=== PATIENT | male | born 1990 | race African-American/Black ===

== ENCOUNTER 2021-04-29 22:49 | Emergency (ER) | payer SELFPAY ==
[2021-04-29 22:55] VITALS: BP 102/64; PULSE 42; RESP 13; TEMP 35.5; O2SAT 95
--- NOTE | 2021-04-29 22:55 | W.ED.AMS ---
HPI - Altered Mental Status General: Chief Complaint: Altered Mental Status Stated Complaint: etoh Time Seen by Provider: 04/29/21 22:55 Limitations: altered mental status History of Present Illness: Mr. Giraldo is a 30-year-old gentleman with unclear history who presents the emergency department due to altered mental status. Apparently EMS was called as the patient had altered mental status and was found near a number of hard alcohol shooters. EMS found the patient significantly somnolent though he did respond to sternal rub. Supplemental oxygen is in place. History is otherwise significant limited by patient's current mental status. Review of Systems General: Reports: ROS unobtainable due to mental status [facility] ED PFSH: Medical History Alcoholic intoxication Unknown family medical history Social History (Updated 05/03/21 @ 19:51 by Navid Garcia MD) Alcohol intake: current Physical Exam Const: EXAM LIMITATIONS: altered mental status GENERAL APPEARANCE: odor of alcohol detected HENMT: COMMON NORMALS: normocephalic and atraumatic HEAD & SCALP: normocephalic and atraumatic THROAT: posterior oropharynx normal Eye: COMMON NORMALS: conjunctivae normal CONJUNCTIVA: Yes conjunctivae normal SCLERA: sclerae normal Neck/C-Spine: COMMON NORMALS: supple GENERAL: Yes trachea midline Resp: COMMON NORMALS: normal respiratory effort and clear to auscultation bilaterally EFFORT & INSPECTION: Yes able to speak in complete sentences AUSCULTATION: clear to auscultation bilaterally Cardio: COMMON NORMALS: regular rhythm RATE: bradycardic RHYTHM: regular rhythm GI: COMMON NORMALS: Soft to palpation PALPATION: Yes Soft to palpation and No Tenderness to palpation present (GI) PERCUSSION: normal to percussion Extremity: GENERAL: Yes normal exam except as noted and No edema Neuro: COMMON NORMALS: moves all extremities SENSORIUM/ORIENTATION: Yes somnolent Course ED course: - Patient was seen and evaluated by me at bedside - Patient placed on cardiac monitors, IV access obtained - Initial evaluation notable for exam as above. Patient is somnolent however does appear to be protecting his airway. Given overall appearance and fitness bradycardia likely not clinically significant. - Labs notable for no leukocytosis or abnormality in hemoglobin. Mild decrease in pH on ABG however I believe that the patient will improve and does not require acute airway intervention. Hypokalemia noted on metabolic panel. Toxic ingestions as tested positive for marijuana screen and elevated ethyl alcohol level. - Patient not cooperative with ordered imaging - Upon serial reexamination after treatment the patient was improved - Based on patient history, evaluation, and testing as interpreted the most likely cause of the patient's condition is acute alcohol intoxication - He was serially reserved until clinically sober. He ambulated without difficulty, speech showed no evidence intoxication, mental status appeared normal, patient tolerated p.o. intake. - The results of ED evaluation were discussed with the patient including prescriptions and/or symptomatic cares (if applicable) including appropriate and responsible use, followup plan, and return precautions. The patient verbalized understanding and felt safe for discharge. - Patient discharged in satisfactory condition. Note: Click bubbles or prepopulated leon in note writing are used for assistance with data collection and billing and are inherently more limited than narrative and other text portions of this note. Please use narrative for additional clinical history and defer to narrative/free test for any case of contradictory information. If information appears in only free text or click bubble it should be considered present or absent as reported. Please contact note leader writer for clarifications of clinical information or contradictory information. MDM is a brief summary, contradictory or erroneous seeming information should be clarified and full note should be reviewed. Vital Signs: Vital signs: Vital Signs Temperature 96 F L 04/29/21 22:55 Pulse Rate 73 04/30/21 00:23 Respiratory Rate 13 04/29/21 22:55 Blood Pressure 117/83 04/30/21 06:06 Pulse Oximetry 99 04/30/21 00:23 MDM - Altered Mental Status Medical Decision Making 31-year-old gentleman presenting with altered mental status found on scene with alcohol. Patient felt a little elevated. CT imaging was ordered however patient declined CT imaging. Patient was observed serially until clinically sober at which point he tolerated p.o. intake, daily, did not show obvious evidence of intoxication at which point he was discharged. Medical Records I reviewed the patient's medical records. Lab Data I reviewed the patient's lab results. : 04/29/21 22:32 04/29/21 22:32 Laboratory Results WBC 5.3 10^3/uL (4.0-10.0) 04/29/21 22:32 RBC 5.22 10^6/uL (4.1-5.3) 04/29/21: Hgb 12.4 g/dL (11.7-16.6) 04/29/21: Hct 40.8 % (42.0-52.0) L 04/29/21: MCV 78.2 fl (80-94) L 04/29/21: MCH 23.8 pg (28.0-34.0) L 04/29/21: MCHC 30.4 g/dL (30.0-36.0) 04/29/21: RDW 13.9 % (12.1-15.1) 04/29/21: Plt Count 190 10^3/cmm (130-400) 04/29/21 MPV 12.2 fL (7.4-10.4) H 04/29/21: Neut % (Auto) 48.9 % 04/29/21: Lymph % (Auto) 42.1 % 04/29/21: [place] % (Auto) 8.0 % 04/29/21: Eos % (Auto) 0.4 % 04/29/21: Baso % (Auto) 0.4 % 04/29/21: Neut # (Auto) 2.58 10^3/uL (1.8-7.7) 04/29/21 Lymph # (Auto) 2.2 10^3/uL (0.8-4.8) 04/29/21: [place] # (Auto) 0.4 10^3/uL (0.2-0.9) 04/29/21: Eos # (Auto) 0.0 10^3/uL (0.0-0.8) 04/29/21: Baso # (Auto) 0.0 10^3/uL (0.0-0.1) 04/29/21 Nucleated RBC % (auto) 0 % 04/29/21 Nucleated RBCs # 0.0 /100WBC 04/29/21: Specimen Type Arterial 04/29/21 23:11 Sample Site Radial, right 04/29/21 23:11 ABG pH 7.29 (7.35-7.45) L 04/29/21 23:11 ABG pCO2 52.8 mmHg (35-45) H 04/29/21 23:11 ABG pO2 239.0 mmHg (80.0-100.0) H 04/29/21 23:11 ABG HCO3 25.2 mmol/L (22-26) 04/29/21 23:11 ABG Base Excess -1.9 mmol/L (-2.0-2.0) 04/29/21 23:11 Roger Test Pos 04/29/21 23:11 Hematocrit 35.4 % (42-52) L 04/29/21 23:11 O2 Delivery Device Nc 04/29/21 23:11 O2 Liters/Min 2.0 % 04/29/21 23:11 Machinery Cleaner ID Dany 04/29/21 23:11 Sodium 142 mmol/L (136-145) 04/29/21 22:32 Potassium 2.9 mmol/L (3.5-5.1) L 04/29/21 22:32 Chloride 104 mmol/L (98-107) 04/29/21 22:32 Carbon Dioxide 22 mmol/L (22-29) 04/29/21 22:32 Anion Gap 18.9 (5-19) 04/29/21 22:32 BUN 8 mg/dL (6-20) 04/29/21 22:32 Creatinine 1.1 mg/dL (0.7-1.2) 04/29/21 22:32 GFR Calculation 96.4 mL/min (90-130) 04/29/21 22:32 Glucose 115 mg/dL (65-115) 04/29/21 22:32 POC Glucose 116 mg/dL (70-110) H 04/29/21 23:03 Calculated Osmolality 293 mOsm/kg (285-295) 04/29/21 22:32 Calcium 9.6 mg/dL (8.5-10.5) 04/29/21 22:32 Total Bilirubin 0.6 mg/dL (0.15-1.2) 04/29/21 22:32 AST 23 U/L (0-40) 04/29/21 22:32 ALT 20 U/L (0-41) 04/29/21 22:32 Alkaline Phosphatase 81 IU/L (40-130) 04/29/21 22:32 Total Protein 7.3 g/dL (6.6-8.7) 04/29/21 22:32 Albumin 4.7 g/dL (3.5-5.2) 04/29/21 22:32 Globulin 2.6 g/dL (1.3-4.6) 04/29/21 22:32 TSH 2.32 uIU/mL (0.27-4.20) 04/29/21 22:32 Salicylates < 0.3 mg/dL (3-10) L 04/29/21 22:32 Urine Opiates Screen Negative ng/mL (Negative) 04/30/21 02:20 Acetaminophen < 5.0 ug/mL (10-30) L 04/29/21 22:32 Ur Barbiturates Screen Negative ng/mL (Negative) 04/30/21 02:20 Ur Phencyclidine Scrn Negative ng/mL (Negative) 04/30/21 02:20 Ur Amphetamines Screen Negative ng/mL (Negative) 04/30/21 02:20 U Benzodiazepines Scrn Negative ng/mL (Negative) 04/30/21 02:20 Urine Cocaine Screen Negative ng/mL (Negative) 04/30/21 02:20 U Marijuana (THC) Screen Positive ng/mL (Negative) H 04/30/21 02:20 Ethyl Alcohol 280 mg/dL (0-10) H 04/29/21 22:32 EKG Data EKG 1: I personally reviewed and interpreted this EKG as follows: EKG interpretation date: 04/29/21 EKG interpretation time: 22:25 Interpretation: Twelve-lead EKG shows a regular rhythm at a rate of 52. [place] interval 178, QRS duration 134, QTc 458. Normal axis. Interpretation: Sinus bradycardia. I do not see evidence of acute DC as noted on electronic interpretation. Critical Care Time Critical Care Time: Critical Care Time: Yes Total Critical Care Time: 35 Attestation: Due to a high probability of clinically significant, possibly life threatening deterioration, the patient required my highest level of attention and preparedness to intervene emergently and I personally spent this critical care time directly and personally managing the patient. This critical care time included obtaining a history; examining the patient; pulse oximetry; ordering and review of laboratory and imaging studies; arranging urgent treatment with development of a management plan; evaluation of patient's response to treatment; frequent reassessment; and, discussions with other providers as applicable. It was exclusive of separately billable procedures. 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 You were seen and evaluated for altered mental status. I believe that this is likely secondary to abuse of alcohol. Please do not abuse alcohol in the future. Failure to responsible use alcohol or avoid alcohol may lead to or worse. Please follow-up with your primary care provider. Please establish with a primary care provider if you do not currently have one. Please return to the emergency department for anything that you are concerned about and feel needs emergency department evaluation. Coding Level of Care Code ED Screen Door Maker for Lesli Banks
--- NOTE | 2021-04-29 22:59 | ECG_ITS ---
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 Measurements Intervals [place] Rate: 52 P: 86 VT: 178 QRS: -25 QRSD: 134 T: 90 QT: 479 QTc: 446 Interpretive Statements SINUS BRADYCARDIA INTRAVENTRICULAR CONDUCTION DELAY [130+ ms QRS DURATION] ANTERIOR MYOCARDIAL INFARCTION , PROBABLY RECENT [40+ ms Q WAVE AND/OR ST/T ABNORMALITY IN V3/V4] ACUTE MD No previous ECG available for comparison Electronically Signed On 04-30-2021 21:42:23 CDT by Sommer Mesa M.D. [id number]
[2021-04-29 23:22] LABS: Basophils % 0.4 %; Eosinophils % 0.4 %; Hematocrit 40.8 % (42.0-52.0); Hemoglobin 12.4 g/dL (11.7-16.6); Lymphocytes # 2.2 10^3/uL (0.8-4.8); Lymphocytes % 42.1 %; Mean Corpuscular HGB Conc 30.4 g/dL (30.0-36.0); Mean Corpuscular Hemoglobin 23.8 pg (28.0-34.0); Mean Corpuscular Volume 78.2 fl (80-94); Mean Platelet Volume 12.2 fL (7.4-10.4); Monocytes # 0.4 10^3/uL (0.2-0.9); Neutrophils # 2.58 10^3/uL (1.8-7.7); Neutrophils % 48.9 %; Nucleated Red Blood Cells % 0 %; Platelet Count 190 10^3/cmm (130-400); Red Blood Count 5.22 10^6/uL (4.1-5.3); Red Cell Distribution Width 13.9 % (12.1-15.1); White Blood Count 5.3 10^3/uL (4.0-10.0)
[2021-04-29 23:23] LABS: ABG PCO2 52.8 mmHg (35-45); ABG PH Result 7.29 (7.35-7.45); Arterial Blood Gas Hematocrit 35.4 % (42-52); Base Excess ABG -1.9 mmol/L (-2.0-2.0); Blood Gas Allen Test Pos; Blood Gas Operator Identificat JB; Blood Gas Sample Site Radial, right; Blood Gas Sample Type Arterial; HCO3 ABG 25.2 mmol/L (22-26); Oxygen Device NC
[2021-04-29 23:38] VITALS: BP 150/59; PULSE 66; O2SAT 98
[2021-04-30 00:01] LABS: Alanine Aminotransferase 20 U/L (0-41); Albumin Level 4.7 g/dL (3.5-5.2); Alcohol Level 280 mg/dL (0-10); Alkaline Phosphatase 81 IU/L (40-130); Anion Gap 18.9 (5-19); Aspartate Amino Transferase 23 U/L (0-40); Blood Urea Nitrogen 8 mg/dL (6-20); Calcium 9.6 mg/dL (8.5-10.5); Carbon Dioxide 22 mmol/L (22-29); Chloride 104 mmol/L (98-107); Globulin 2.6 g/dL (1.3-4.6); Glomerular Filtration Rate 96.4 mL/min (90-130); Glucose 115 mg/dL (65-115); Osmolality Calculated 293 mOsm/kg (285-295); Sodium 142 mmol/L (136-145); Thyroid Stimulating Hormone 2.32 uIU/mL (0.27-4.20); Total Bilirubin 0.6 mg/dL (0.15-1.2); Total Protein 7.3 g/dL (6.6-8.7)
[2021-04-30 00:04] LABS: Acetaminophen < 5.0 ug/mL (10-30); Salicylate < 0.3 mg/dL (3-10)
[2021-04-30 00:05] LABS: Potassium 2.9 mmol/L (3.5-5.1)
[2021-04-30 00:23] VITALS: BP 111/71; PULSE 73; O2SAT 99
[2021-04-30] MEDS: lidocaine 1% 5 ML in potassium chloride premix 100 ML 25 ML IV (00:52)
[2021-04-30] MEDS: sodium chloride 0.9% 1,000 ML 999 ML IV (00:52)
[2021-04-30 01:05] LABS: Glucose Point of Care 116 mg/dL (70-110)
[2021-04-30 02:37] LABS: Amphetamines Screen Urine Negative (Negative); Barbiturates Screen Urine Negative (Negative); Benzodiazepines Screen Urine Negative (Negative); Cocaine Screen Urine Negative (Negative); Opiate Screen Urine Negative (Negative); PCP Screen Urine Negative (Negative); THC Screen Urine Positive (Negative)
[2021-04-30 06:06] VITALS: BP 117/83
--- NOTE | 2021-04-30 06:13 | PC.NURSE ---
critical care time pt required a nurse to be in the room due to pt lack of judgement- ex- trying to get out of bed or trying to remove iv and monitor cords and requirement for nurse to continually be in ct with pt to attempt scans.
[2021-04-30] MEDS: potassium chloride ER 20 mEq Tablet 40 MEQ PO (06:26)
== END 2021-04-30 06:00 | disposition home or self-care (01) ==
PROVIDERS: Emergency Provider Emergency Medicine
DX: R41.82 Altered mental status, unspecified (principal); F10.129 Alcohol abuse with intoxication, unspecified; Y90.8 Blood alcohol level of 240 mg/100 ml or more; E87.6 Hypokalemia; R00.1 Bradycardia, unspecified
CPT/HCPCS: 36416; 80053; 80306; 80307; 82803; 82962; 84443; 85025; 93005; 96365; 96366; 99284; J3480; J7030

== ENCOUNTER 2022-09-24 02:22 | Emergency (ER) | payer SELFPAY ==
[2022-09-24 02:25] VITALS: PULSE 94; RESP 12; O2SAT 94; BMI 21.7
--- NOTE | 2022-09-24 02:28 | CTR_ITS ---
PROCEDURE INFORMATION: Exam: CT Head Without Contrast Exam date and time: 09/24/2022 2:49 AM Age: 32 years old Clinical indication: Altered mental status/memory loss; Patient HX: AMS due to alcohol intoxication TECHNIQUE: Imaging protocol: Computed tomography of the head without contrast. Radiation optimization: All CT scans at this facility use at least one of these dose optimization techniques: automated exposure control; mA and/or kV adjustment per patient size (includes targeted exams where dose is matched to clinical indication); or iterative reconstruction. REPORTING DATA: Count of CT and Cardiac NM exams in prior 12 months: This patient has received 0 known CTs and 0 known cardiac nuclear medicine studies in the 12 months prior to the current study. COMPARISON: No relevant prior studies available. RADIATION DOSE METRICS: Total DLP (mGy-cm): 2006.98 FINDINGS: Limitations: Exam sensitivity and specificity is somewhat limited secondary to technique/quantum mottle. Brain: No acute intracranial hemorrhage. Left frontal area of decreased attenuation with punctate calcification adjacent to the inner table on series 12, images 40 through 43 measuring up to approximately 1.8 cm x 0.7 cm in axial dimension. Cerebral ventricles: The ventricular system is within normal limits of variation for the patient's age. Paranasal sinuses: Visualized paranasal sinuses are grossly unremarkable. No air fluid levels. Mastoid air cells: Visualized mastoid air cells are well aerated. Bones/joints: No acute fracture. Soft tissues: Grossly unremarkable. CT/CT head wo con* [id number] IMPRESSION: 1. No acute intracranial hemorrhage. 2. Left frontal area of decreased attenuation adjacent to the inner table (series 12, image 40) measuring up to approximately 1.8 cm x 0.7 cm in axial dimension may represent and atypical hypodense meningioma versus sequelae of prior ischemic or infectious/inflammatory insult however other etiologies cannot be excluded. A contrast-enhanced MRI of the brain may be helpful for further evaluation if clinically indicated.
[2022-09-24] MEDS: sodium chloride 0.9% 1,000 ML 999 ML IV ×2 (02:30→02:40)
[2022-09-24 02:57] LABS: Basophils % 0.4 %; Eosinophils # 0.1 10^3/uL (0.0-0.8); Eosinophils % 1.9 %; Hematocrit 42.6 % (42.0-52.0); Hemoglobin 12.7 g/dL (11.7-16.6); Lymphocytes # 2.6 10^3/uL (0.8-4.8); Mean Corpuscular HGB Conc 29.8 g/dL (30.0-36.0); Mean Corpuscular Hemoglobin 24.3 pg (28.0-34.0); Mean Corpuscular Volume 81.5 fl (80-94); Mean Platelet Volume 11.1 fL (7.4-10.4); Monocytes # 0.6 10^3/uL (0.2-0.9); Monocytes % 7.9 %; Neutrophils # 3.56 10^3/uL (1.8-7.7); Neutrophils % 51.5 %; Nucleated Red Blood Cells % 0 %; Platelet Count 213 10^3/cmm (130-400); Red Blood Count 5.23 10^6/uL (4.1-5.3); Red Cell Distribution Width 14.2 % (12.1-15.1); White Blood Count 6.9 10^3/uL (4.0-10.0)
--- NOTE | 2022-09-24 03:00 | ECG_ITS ---
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 Measurements Intervals [place] Rate: 84 P: 56 IN: 164 QRS: 4 QRSD: 98 T: 72 QT: 350 QTc: 415 Interpretive Statements SINUS RHYTHM POSSIBLE LEFT ATRIAL ENLARGEMENT [-0.1mV P-WAVE IN V1/V2] POSSIBLE RIGHT VENTRICULAR CONDUCTION DELAY [RSR (QR) IN V1/V2] ST DEVIATION AND MODERATE T-WAVE ABNORMALITY, CONSIDER ANTERIOR ISCHEMIA [-0.1+ mV T-WAVE IN V3/V4] Compared to ECG 04/29/2021 22:22:56 T-wave abnormality now present Possible ischemia now present Sinus bradycardia no longer present Intraventricular conduction delay no longer present Myocardial infarct finding no longer present Electronically Signed On 09-24-2022 9:24:22 CDT by Zhou Longoria M.D. [id number]
--- NOTE | 2022-09-24 03:00 | ED_ITS ---
HPI - Alcohol General: Chief Complaint: Alcohol Stated Complaint: ETOH Time Seen by Provider: 09/24/22 02:25 Source: EMS and police Mode of arrival: EMS Limitations: altered mental status History of Present Illness: 32-year-old male who was found in a parking lot facedown in his vomit tonight. History currently is from police and ambulance as he is only responsive to painful stimuli not able to answer any questions. Please states they know patient well that he has done this before and has been extremely intoxicated he has a history of drug abuse as well. Patient is covered in vomit and vomited in the EMS as well no signs of trauma at this time Review of Systems General: Reports: ROS unobtainable due to mental status PFSH ED PFSH: Medical History Alcoholic intoxication Unknown family medical history Social History Alcohol intake: current Physical Exam Const: COMMON NORMALS: negative for patient oriented x3 OTHER: Unresponsive with vomit on his shirt HENMT: COMMON NORMALS: normocephalic and atraumatic HEAD & SCALP: normocephalic and atraumatic MOUTH: Normal oral and palatal mucosa present Eye: COMMON NORMALS: Equal, round and reactive pupils present PUPIL: Yes Equal, round and reactive pupils present Neck/C-Spine: COMMON NORMALS: supple Chest: COMMONS NORMALS: normal inspection of the chest and normal palpation of entire chest wall Resp: COMMON NORMALS: normal respiratory effort and clear to auscultation bilaterally AUSCULTATION: clear to auscultation bilaterally Cardio: COMMON NORMALS: regular rate and regular rhythm RATE: regular rate RHYTHM: regular rhythm GI: COMMON NORMALS: Normal to inspection, nondistended, normoactive bowel sounds present and Soft to palpation PALPATION: Yes Soft to palpation Extremity: COMMON NORMALS: normal to inspection Neuro: COMMON NORMALS: negative for patient oriented x3 Psych: COMMON NORMALS: negative for mental status grossly normal Skin: COMMON NORMALS: no rashes or lesions noted GENERAL SKIN EXAM: no rashes or lesions noted Course Vital Signs: Vital signs: Vital Signs Pulse Rate 73 09/24/22 05:43 Respiratory Rate 18 09/24/22 05:43 Blood Pressure 113/60 09/24/22 05:43 Pulse Oximetry 99 09/24/22 05:43 Oxygen Delivery Me thod Room Air 09/24/22 05:43 MDM - Alcohol Medical Decision Making Patient presents with alcohol intoxication he is now awake alert ambulatory he is wanting to leave he is stable he is able to ambulate without any difficulty has decision made capacity and was discharged Lab Data 09/24/22 02:46 09/24/22 02:[address] 09/24/22 02:28 IMPRESSION: 1. No acute intracranial hemorrhage. 2. Left frontal area of decreased attenuation adjacent to the inner table (series 12, image 40) measuring up to approximately 1.8 cm x 0.7 cm in axial dimension may represent and atypical hypodense meningioma versus sequelae of prior ischemic or infectious/inflammatory insult however other etiologies cannot be excluded. A contrast-enhanced MRI of the brain may be helpful for further evaluation if clinically indicated. Chest X-Ray 09/24/22 03:02 IMPRESSION: No acute findings. Laboratory Results WBC 6.9 10^3/uL (4.0-10.0) 09/24/22 02:46 RBC 5.23 10^6/uL (4.1-5.3) 09/24/22 02:46 Hgb 12.7 g/dL (11.7-16.6) 09/24/22 02:46 Hct 42.6 % (42.0-52.0) 09/24/22 02:46 MCV 81.5 fl (80-94) 09/24/22 02:46 MCH 24.3 pg (28.0-34.0) L 09/24/22 02:46 MCHC 29.8 g/dL (30.0-36.0) L 09/24/22 02:46 RDW 14.2 % (12.1-15.1) 09/24/22 02:46 Plt Count 213 10^3/cmm (130-400) 09/24/22 02:46 MPV 11.1 fL (7.4-10.4) H 09/24/22 02:46 Neut % (Auto) 51.5 % 09/24/22 02:46 Lymph % (Auto) 38.0 % 09/24/22 02:46 [place] % (Auto) 7.9 % 09/24/22 02:46 Eos % (Auto) 1.9 % 09/24/22 02:46 Baso % (Auto) 0.4 % 09/24/22 02:46 Neut # (Auto) 3.56 10^3/uL (1.8-7.7) 09/24/22 02:46 Lymph # (Auto) 2.6 10^3/uL (0.8-4.8) 09/24/22 02:46 [place] # (Auto) 0.6 10^3/uL (0.2-0.9) 09/24/22 02:46 Eos # (Auto) 0.1 10^3/uL (0.0-0.8) 09/24/22 02:46 Baso # (Auto) 0.0 10^3/uL (0.0-0.1) 09/24/22 02:46 Nucleated RBC % (auto) 0 % 09/24/22 02:46 Nucleated RBCs # 0.0 /100WBC 09/24/22 02:46 Sodium 145 mmol/L (136-145) 09/24/22 02:46 Potassium 4.1 mmol/L (3.5-5.1) 09/24/22 02:46 Chloride 108 mmol/L (98-107) H 09/24/22 02:46 Carbon Dioxide 27 mmol/L (22-29) 09/24/22 02:46 Anion Gap 14.1 (5-19) 09/24/22 02:46 BUN 9 mg/dL (6-20) 09/24/22 02:46 Creatinine 0.9 mg/dL (0.7-1.2) 09/24/22 02:46 GFR Calculation 119.9 mL/min (90-130) 09/24/22 02:46 Glucose 122 mg/dL (65-115) H 09/24/22 02:46 Calculated Osmolality 300 mOsm/kg (285-295) H 09/24/22 02:46 Calcium 9.0 mg/dL (8.5-10.5) 09/24/22 02:46 Total Bilirubin 0.3 mg/dL (0.15-1.2) 09/24/22 02:46 AST 26 U/L (0-40) 09/24/22 02:46 ALT 13 U/L (0-41) 09/24/22 02:46 Alkaline Phosphatase 85 U/L (40-130) 09/24/22 02:46 Creatine Kinase 267 U/L (39-308) 09/24/22 02:46 Total Protein 7.0 g/dL (6.6-8.7) 09/24/22 02:46 Albumin 4.3 g/dL (3.5-5.2) 09/24/22 02:46 Globulin 2.7 g/dL (1.3-4.6) 09/24/22 02:46 Ethyl Alcohol 282 mg/dL (0-10) H 09/24/22 02:46 Discharge Plan Discharge Patient Disposition: Home Clinical Impression: Alcoholic intoxication Condition: Stable Discharge Orders: Discharge ED (Routine); Ordered 09/24/22 Ordered By: Didi Page Discharge Diet: Advance as tolerated Discharge Activity: Resume usual activity Patient Instructions: Alcohol Intoxication (ED) Coding Level of Care Code ED Slackline Operator for Lesli Banks
--- NOTE | 2022-09-24 03:02 | XRR_ITS ---
PROCEDURE INFORMATION: Exam: XR Chest Exam date and time: 09/24/2022 3:10 AM Age: 32 years old Clinical indication: Other: Alcohol intoxication; Patient HX: Alcohol inxtoxication; Additional info: AMS TECHNIQUE: Imaging protocol: Radiologic exam of the chest. Views: 1 view. COMPARISON: No relevant prior studies available. FINDINGS: Lungs: Unremarkable. No consolidation. Pleural spaces: Unremarkable. No pleural effusion. No pneumothorax. Heart/Mediastinum: Unremarkable. No cardiomegaly. Bones/joints: Unremarkable. XR/XR chest 1V portable [id number] IMPRESSION: No acute findings.
[2022-09-24 03:13] VITALS: PULSE 84; RESP 18; O2SAT 93
[2022-09-24 03:19] LABS: Alanine Aminotransferase 13 U/L (0-41); Albumin Level 4.3 g/dL (3.5-5.2); Alcohol Level 282 mg/dL (0-10); Alkaline Phosphatase 85 U/L (40-130); Anion Gap 14.1 (5-19); Aspartate Amino Transferase 26 U/L (0-40); Blood Urea Nitrogen 9 mg/dL (6-20); Carbon Dioxide 27 mmol/L (22-29); Chloride 108 mmol/L (98-107); Globulin 2.7 g/dL (1.3-4.6); Glomerular Filtration Rate 119.9 mL/min (90-130); Glucose 122 mg/dL (65-115); Osmolality Calculated 300 mOsm/kg (285-295); Potassium 4.1 mmol/L (3.5-5.1); Sodium 145 mmol/L (136-145); Total Bilirubin 0.3 mg/dL (0.15-1.2)
[2022-09-24 03:42] LABS: Creatine Phosphokinase 267 U/L (39-308)
--- NOTE | 2022-09-24 03:57 | PC.NURSE ---
Pt. lying on his abdomen, refusing to roll over on his back. pt. had to be held on his back for xray. Pt. resting now in room with vitals within normal limits.
[2022-09-24 05:43] VITALS: BP 113/60; PULSE 73; RESP 18; O2SAT 99
--- NOTE | 2022-09-24 06:02 | PC.NURSE ---
Fluids were dc'd prior to finishing infusing per Dr Page
--- NOTE | 2022-09-24 06:53 | PC.NURSE ---
Patient report given to AIDEE Mensah
== END 2022-09-24 07:41 | disposition home or self-care (01) ==
PROVIDERS: Emergency Provider Emergency Medicine
DX: F10.129 Alcohol abuse with intoxication, unspecified (principal); Y90.8 Blood alcohol level of 240 mg/100 ml or more
CPT/HCPCS: 70450; 71045; 80053; 80307; 82550; 85025; 93005; 99285; J7030

== ENCOUNTER 2023-10-05 22:27 | Observation (INO) | payer OTHER, SELFPAY ==
[2023-10-05 22:33] VITALS: BP 146/95; PULSE 92; RESP 16; TEMP 36.9; O2SAT 97; BMI 22.4
--- NOTE | 2023-10-05 22:44 | XRR_ITS ---
PROCEDURE INFORMATION: Exam: XR Abdomen Exam date and time: 10/05/2023 10:54 PM Age: 33 years old Clinical indication: Abdominal pain; Other: Foreign body; Additional info: Foreign body in rectum, PT states there is a cucumber in his rectum TECHNIQUE: Imaging protocol: Radiologic exam of the abdomen. Views: Frontal supine view of the abdomen. 1 View. COMPARISON: CR XR chest 1V portable [id number] 09/24/2022 3:10 AM FINDINGS: Gastrointestinal tract: Normal. No bowel dilation. Vasculature: Pelvic phleboliths. Bones/joints: Unremarkable. XR/XR abdomen 1V* [id number] IMPRESSION: No acute findings. No radiopaque foreign body.
--- NOTE | 2023-10-05 22:46 | ED_ITS ---
HPI - Skin/Abscess/Foreign Bdy General: Chief complaint: Skin/Abscess/Foreign Body Stated complaint: object stuck in rectum Time Seen by Provider: 10/05/23 22:40 History of Present Illness: Patient presents to the ER with complaints of a cucumber in his rectum that he cannot remove. He states it has been there for several hours and does not cause any pain. Review of Systems General: Reports: 10 or more systems reviewed and unremarkable except in HPI and below PFSH ED PFSH: Medical History Unknown family medical history Alcoholic intoxication Social History Alcohol intake: current Physical Exam Const: COMMON NORMALS: no acute distress, average body habitus, patient oriented x3, no limitations, healthy appearing, alert and well nourished Neck/C-Spine: COMMON NORMALS: no JVD Chest: COMMONS NORMALS: normal inspection of the chest and normal palpation of entire chest wall Resp: COMMON NORMALS: normal respiratory effort, No retractions, No use of accessory muscles and clear to auscultation bilaterally AUSCULTATION: clear to auscultation bilaterally Cardio: COMMON NORMALS: no JVD, regular rate, regular rhythm, S1 normal heart sound present, S2 normal heart sound present, No gallops present (Cardio), No clicks present (Cardio), No murmurs present (Cardio) and No rub (Cardio) RATE: regular rate RHYTHM: regular rhythm HEART SOUNDS: S1 normal heart sound present and S2 normal heart sound present GI: COMMON NORMALS: Normal to inspection, nondistended, normoactive bowel sounds present, Soft to palpation, non-tender, No hepatosplenomegaly present and no masses PALPATION: Yes Soft to palpation and Yes No hepatosplenomegaly present : OTHER: Rectal exam performed just barely feel the end of foreign body with 1 finger could not manipulated or remove it. Neuro: COMMON NORMALS: patient oriented x3 SENSORIUM/ORIENTATION: Yes alert Course Vital Signs: Vital signs: Vital Signs Temperature 98.4 F 10/05/23 22:33 Pulse Rate 92 10/05/23 22:33 Respiratory Rate 16 10/05/23 22:33 Blood Pressure 146/95 10/05/23 22:33 Pulse Oximetry 97 10/05/23 22:33 Oxygen Delivery Me thod Room Air 10/05/23 22:33 MDM - Skin/Abscess/Foreign Bdy Medicial Decision Making X-ray showed potential foreign body, rectal exam was performed revealed potential foreign body but unable to extract at this time. Dr. Young was notified and we will admit him and he will see him in the morning. Medical Records I reviewed the patient's medical records. Lab Data I reviewed the patient's lab results. All radiology interpretation(s) finalized by discharge Discharge Plan Discharge Patient Disposition: Placed in Observation Clinical Impression: Foreign body in anus and rectum, initial encounter Coding Level of Care Code ED Cigarette Carton Sealer for Lesli aBnks
[2023-10-06] VITALS (14 sets, daily range): BP systolic 106–138; BP diastolic 70–90; PULSE 43–94; RESP 14–21; TEMP 36.4–37.2; O2SAT 95–100; BMI 22.0
--- NOTE | 2023-10-06 10:04 | P.HP_ITS ---
Providers/Chief Complaint Admitting Physician: Simeon Young DO Chief Complaint: object stuck in rectum History of Present Illness Abhi Giraldo is a 33 year old male who presented to the hospital with a 2- day history of having a cucumber stuck in his rectum. He has a history of multiple ER visits for alcohol and drug intoxication. ER attempted removal but was unsuccessful. He denies any abdominal pain, nausea, emesis, hematochezia and/or melena Review of Systems General: Reports: 10 or more systems reviewed and unremarkable except in HPI and below Medications/Allergies Home Medications Medication Instructions Recorded Confirmed Last Taken Type No Known Home Medications 10/06/23 10/06/23 Unknown History PFSH Acute PFSH: Medical History Unknown family medical history Alcoholic intoxication Social History Alcohol intake: current Vitals/I&O/Wt Last Vital Signs Temp 97.7 F 10/06/23 07:28 Pulse 61 10/06/23 07:28 Resp 16 10/06/23 07:28 BP 111/70 10/06/23 07:28 Pulse Ox 99 10/06/23 07:28 O2 Del Method Room Air 10/06/23 07:28 10/05/23 10/06/23 10/06/23 22:59 06:59 14:59 Intake Total 0 / 0 Balance 0 / 0 Weight last 48 hrs Weight 162 lb 14.4 oz Weight 162 lb 4.8 oz Weight 165 lb Physical Exam Narrative: General : Patient is well developed , no acute distress, oriented x3 Head : Normal cephalic, a-traumatic. Ears : Pinnae and external canal are normal. Hearing is normal. Eyes : PERRLA, Sclera and injection are normal. No conjunctival discharge. Nose : Mucous membranes are without erythema. Throat : buccal mucosa is normal, gums are without significant recession or hypertrophy. Lungs : Equal chest rise bilaterally, no use of accessory muscles, trachea is midline. Cor : Rate and rhythm are normal. Abdomen : Soft, ND, NT, no g/r/m Extremities : No edema, no cyanosis or clubbing, dorsalis pedis pulses are present bilaterally, non-tender to palpation of calves. Upper extremities are normal bilaterally. Back : non-tender to palpation, no CVA tenderness. Neuro : CN II - XII intact, Upper and lower extremities have equal and full strength A&P Assessment and plan (1) Foreign body in anus and rectum, initial encounter: Plan Sigmoidoscopy with removal of foreign body The risks and benefits of the procedure, including bleeding, infection, intestinal perforation requiring surgery, missed lesion were explained to the patient. The patient is understanding of the risks and wishes to proceed. If I am unable to remove the foreign body through endoscopy, he will require exploratory laparotomy with Cartagena's procedure to include removal of foreign body. I have explained this to him and he understands. Attestations Medical Necessity Statement*: If I am able to remove the foreign body with endoscopy today he will be discharged today Coding Level of Care Code 06193 Diagnoses Foreign body in anus and rectum, initial encounter T18.5XXA
--- NOTE | 2023-10-06 11:40 | ANES.PREANE2 ---
Pre-Anesthetic Assessment Height/Weight: Height 1.83 m Weight 73.89 kg Temp Pulse Resp BP Pulse Ox O2 Del Method 98.0 F 56 L 16 130/74 100 Room Air 10/06/23 11:12 10/06/23 11:12 10/06/23 11:12 10/06/23 11:12 10/06/23 11:12 10/06/23 11:12 Operation Date: 10/06/23 11:45 Proposed Procedures p Sigmoidoscopy with foreign body removal(Not Applicable) - Simeon Young DO Familial anesthetic complications: None Was Beta Deanne taken within 24 hours: N/A Was Clonidine taken within 24 hours: N/A Last intake: NPO >12 hours Social Alcohol (6 beers) and Tobacco (Occ marijuana) Exam alert, oriented x 3, clear to auscultation bilaterally and regular rate & rhythm Airway Submandibular: within normal limits Cervical ROM: within normal limits Mallampati: Class II Dentition: chipped (Numerous chipped teeth) History/ROS No significant history except as noted Pulmonary None reported CV/HEM None reported None reported Hepatic None reported GI None reported Metabolic None reported Musc/skel None reported Neuropsych None reported Anesthetic Plan ASA status: 1 Anesthesia: Anesthesia Evaluation, General and MAC Risk of > 500 ml blood loss (7ml/kg in children): No Medications/Allergies Home Medications Medication Instructions Recorded Confirmed Last Taken Type No Known Home Medications 10/06/23 10/06/23 Unknown History Allergies Allergy/AdvReac Type Severity Reaction Status Date / Time No Known Allergies Allergy Verified 10/06/23 11:53 [facility] Anesthesia Medical History Unknown family medical history Alcoholic intoxication Social History Alcohol intake: current Data Anesthesia Cardiac Studies: No Data to Display
[2023-10-06] MEDS: sodium chloride 0.9% 1,000 ML 30 ML IV (11:54)
--- NOTE | 2023-10-06 12:30 | ANE.PACU2 ---
Inpatient post-anesthesia follow up: Airway intact: Yes Vital signs: Temperature 98.1 F Pulse Rate 52 Respiratory Rate 16 Blood Pressure 112/73 Pulse Oximetry 99 Oxygen Delivery Me thod Room Air Oxygen Flow Rate 3 Fraction of Inspir ed Oxygen Hydration adequate: Yes Nausea and vomiting: No Pain level: 1 Mental status: Baseline
--- NOTE | 2023-10-06 12:33 | PM.DCS ---
Discharge Providers Date of Admission: 10/05/23 23:48 Date of Discharge: October 06, 2023 Attending Provider at Admission: Simeon Young DO Attending Provider at Discharge: Simeon Young DO Diagnoses at Discharge Discharge Diagnosis (1) Foreign body in anus and rectum, initial encounter: Status: Acute Reason for Visit Reason for Visit: object stuck in rectum Hospital Course Hospital Course This very pleasant 33-year-old gender presented to hospital with a cucumber stuck in his rectum. He underwent sigmoidoscopy with removal of foreign body. He is found to have a superficial rectal ulcer. He was doing well post procedure and was discharged home in good condition Physical Exam Narrative: General : Patient is well developed , no acute distress, oriented x3 Head : Normal cephalic, a-traumatic. Ears : Pinnae and external canal are normal. Hearing is normal. Eyes : PERRLA, Sclera and injection are normal. No conjunctival discharge. Nose : Mucous membranes are without erythema. Throat : buccal mucosa is normal, gums are without significant recession or hypertrophy. Lungs : Equal chest rise bilaterally, no use of accessory muscles, trachea is midline. Cor : Rate and rhythm are normal. Abdomen : Soft, ND, NT, no g/r/m Extremities : No edema, no cyanosis or clubbing, dorsalis pedis pulses are present bilaterally, non-tender to palpation of calves. Upper extremities are normal bilaterally. Back : non-tender to palpation, no CVA tenderness. Neuro : CN II - XII intact, Upper and lower extremities have equal and full strength Discharge Data Studies Completed and Pending Completed Studies During Hospitalization Category Date Time Status XR abdomen 1V* 09128 Stat Exams 10/05/23 22:44 Completed Radiology Impressions Abdomen X-Ray 10/05/23 22:44 IMPRESSION: No acute findings. No radiopaque foreign body. Procedures Performed Sigmoidoscopy with removal of foreign body Vitals Last Vital Signs Temp 98.9 F 10/06/23 12:15 Pulse 55 L 10/06/23 12:25 Resp 18 10/06/23 12:25 BP 120/72 10/06/23 12:25 Pulse Ox 98 10/06/23 12:25 O2 Del Method Room Air 10/06/23 12:25 O2 Flow Rate 3 10/06/23 12:15 Discharge Plan Discharge Patient Disposition: Home Condition: Stable Prescriptions: No Action No Known Home Medications Discharge Orders: Discharge Order (Routine); Ordered 10/06/23 Ordered By: Simeon Young Discharge Diet: Advance as tolerated Discharge Activity: Resume usual activity Patient Instructions: GI Post Discharge Instructions w/ Anesthesia, Opioid Safety, Pain Management Discharge Attestations Time Spent in Discharge Care*: less than 30 min Quality Metrics Clinical Quality Measures [ No reported AMI, CVA or VTE this stay] Coding Level of Care Code Acute Code for Chg Fwd Diagnoses Foreign body in anus and rectum, initial encounter T18.5XXA
== END 2023-10-06 14:30 | disposition home or self-care (01) ==
LOC: ER 23:47 → MEDSURG 23:48
PROVIDERS: Admitting Provider Surgery; Emergency Provider Emergency Medicine; Visit Provider Surgery
PROC: 0DJD8ZZ Inspection of Lower Intestinal Tract, Via Natural or Artificial Opening Endoscopic (ICD-10-PCS; CPT 45330; principal; 2023-10-06 11:45)
DX: T18.5XXA Foreign body in anus and rectum, initial encounter (principal)
CPT/HCPCS: 45332; 74018; 99285; G0378; J2704; J7030

== ENCOUNTER 2024-09-01 20:41 | Emergency (ER) | payer OTHER, SELFPAY ==
--- OUTSIDE RECORDS SUMMARY | 2024-09-01 20:47 | XMS_ITS | Data Portability ---
Author Organization PAN [facility], [facility] Address [address] [address] Assessment No assessment recorded. Plan of Treatment Reminders Order Date Submit Date Provider Last Modified By Organization Details Last Modified Time Details Appointments None recorded. Lab culture, urine 2023 [facility], [address] [place] [address], [facility] [address] [place], [address], 4 22:12:14 urinalysis, dipstick [email or web address] ([facility]), [address] [place], [address], 4 22:35:36 CT + NG DNA, PCR, urine 2023 024 [email or web address] [facility], [address] [place] [address], [facility] [address], [place], [address], 4 09:28:56 Referral None recorded. Procedures None recorded. Surgeries None recorded. Imaging None recorded. Medication Orders azithromyci n 500 mg tablet 2023 024 [facility], [address], [place], [address], 4 16:34:55 Patient TargetsNo targets recorded. Patient InstructionsNo instructions recorded. Reason for Referral None Reported. Results Created Date Observation Date Name Description Value Unit Range Abnormal Flag Note LastModifiedBy Organization Detail LastModifiedTime 11/07/19 24 11/07/2023 urina lysis , dipst ick Leukocytes Trace Not Available [facility] ([facility]) [address] [place], [address], 11/07/2023 18:25:28 11/07/19 24 11/07/2023 urina lysis , dipst ick Nitrite negati ve Not Available [facility] ([facility]) [address] [place], [address], 11/07/2023 18:25:28 11/07/19 24 11/07/2023 urina lysis , dipst ick Urobilinogen 1 Not Available [facility] ([facility]) [address] [place], [address], 11/07/2023 18:25:28 11/07/19 24 11/07/2023 urina lysis , dipst ick Protein Trace Not Available [facility] ([facility]) [address] [place], [address], 11/07/2023 18:25:28 11/07/19 24 11/07/2023 urina lysis , dipst ick pH 6.0 Not Available [facility] ([facility]) [address] [place], [address], 11/07/2023 18:25:28 11/07/19 24 11/07/2023 urina lysis , dipst ick Blood Negati ve Not Available [facility] ([facility]) [address] [place], [address], 11/07/2023 18:25:28 11/07/19 24 11/07/2023 urina lysis , dipst ick Specific [place] 1.030 Not Available [facility] ( [facility]) [address] [place], [address], 11/07/2023 18:25:28 11/07/19 24 11/07/2023 urina lysis , dipst ick Ketone Negati ve Not Available [facility] ([facility]) [address] [place], [address], 11/07/2023 18:25:28 11/07/19 24 11/07/2023 urina lysis , dipst ick Bilirubin Negati ve Not Available [facility] ([facility]) [address] [place], [address], 11/07/2023 18:25:28 11/07/19 24 11/07/2023 urina lysis , dipst ick Glucose Negati ve Not Available [facility] ([facility]) [address] [place], [address], 11/07/2023 18:25:28 11/07/19 24 11/07/2023 urina lysis , dipst ick Appearance Clear Not Available [facility] ([facility]) [address] [place], [address], 11/07/2023 18:25:28 11/07/19 24 11/07/2023 urina lysis , dipst ick Color Yellow Not Available [facility] ([facility]) [address] [place], [address], 11/07/2023 18:25:28 11/08/19 24 11/09/2023 CHLAM YDIA/ N. GONOR RHOEA E RNA, TMA, UROGE NITAL chlamydia trachomatis RNA, tma, urogenital DETECT ED not detect ed abnormal If resul ts do not corre late with clini gayathri findi ngs, testi ng using an alter harsh molec ular targe t which ampli fies diffe rent elba ic seque nces can be perfo rmed on the same sampl e for resul t confi rmati on withi n 7 days of sampl e recei pt or per perfo rming labor atory speci men reten tion polic y. Alter harsh tarsoren t testi ng is avail able; 17213 (C. trach omati s) [place] 29996 (N. gonor rhoea e). Not Available [facility] [place] [address] [place], [address], 11/09/2023 16:33:57 11/08/1911/09/2023 CHLAM YDIA/ N. GONOR RHOEA E RNA, TMA, UROGE NITAL neisseria gonorrhoeae RNA, tma, urogenital NOT DETECT ED not detect ed normal Not Available [facility] [place] [address] [place], [address], 11/09/2023 16:33:57 11/08/1911/09/2023 CHLAM YDIA/ N. GONOR RHOEA E RNA, TMA, UROGE NITAL comment The isela tical perfo rmanc e deonte cteri stics of this assay , when used to test SureP ath(T M) speci mens have been deter mined by [facility]. The modif icati ons have not been clear ed or appro maisha by the FDA. This assay has been valid ated pursu ant to the CLIA regul ation s and is used for clini gayathri purpo ses. For addit ional infor silva harris e refer to https ://ed ucati on.qu yusufdi Self-A-r-T. com/f aq/FA Q154 (This link is being provi ded for infor mary mckeon/ educa marlene l purpo ses only. ) Not Available [facility] [place] [address] [place], [address], 11/09/2023 16:33:57 11/08/1911/09/2023 CULTU RE, URINE , ROUTI NE culture, urine, routine SEE NOTE CULTU RE, URINE , ROUTI NE Micro Numbe r: [id number] Test Statu s: Final Speci men Sourc e: Urine , clean catch Speci men Quali ty: Adequ ate Resul t: No Growt h Not Available [facility] [address] [place] [place], [address], 11/09/2023 22:12:14 Result Notes None recorded. Problems Name Problem SNOMED Code Status Onset Date Resolution Date Notes Provider Name and Address Organization Details Recorded Time Chlamydial infection 302339088 Active [address], [address], [facility] 4 16:34:48 Dysuria 62500408 Active [address], [address] , [facility] 16:35:15 Problem Notes None recorded. Medical Equipment None Reported. Allergies No known drug allergies Medications Name Sig Start Date Stop Date Status Note LastModified by Organization Details LastModified Time azithromycin 500 mg tablet take 2 tablets together one time. all partners should be treated at the same time. 2023 active Not Available Not Available Not Avai lable Vitals Date Recorded Body height Body weight Body mass index (BMI) Oxygen saturation Oxygen saturation in Arterial blood by Pulse oximetry Heart rate Respiratory rate Body temperature Systolic And Diastolic Provider Name and Address Organization Details Last Updated DateTime 4 182.88 cm 21535.4 2 g 23.1 kg/m2 99 % 99 % 52 /min 16 /min 98.9 [degF] 126/84 mm[Hg] Luz B[facility] 4 18:37:52 Social History Question Answer Notes LastModified by Organizat ion Details LastModified Time What Was The Date Of Your Most Recent Tobacco Screening? 11/07/2023 hpliler Information not available 11/07/2023 Sex: Unknown Functional Status None recorded. Mental Status None recorded. Family History Nothing Reported. Medical History No medical history recorded. Immunizations Vaccine Type Date Status Note Provider Nam e and Address Organization Details Recorded Time COVID-19, mRNA, LNP-S, PF, 100 mcg/0.5mL dose or 50 mcg/0.25mL dose 03/12/2020 completed [facility] 11/07/2023 18:24:42 COVID-19, mRNA, LNP-S, PF, 100 mcg/0.5mL dose or 50 mcg/0.25mL dose 04/17/2020 completed [facility] 11/07/2023 18:24:42 Past Encounters Encounter ID Performer Location Encounter Start Date Encounter Closed Date Diagnosis/Indication Diagnosis SNOMED-CT Code Diagnosis ICD10 Code Diagnosis Note [id number] Ghulam Schwarz DO [facility] ([facility]) [address] [place] [address] 11/07/2023 18:23:19 11/07/2023 18:49:13 Dysuria 74095634 R30.0 Chlamydial infection 105 970484 A74.9 Presumed. Versus other sexually-t ransmitted infection. Counseled patient on sexually transmitte d infections and how to prevent them. Will get GC chlamydia and consider further testing pending symptoms and results. Health Concerns Section Related Observation LastModified by Organization Detai ls LastModified Time None Recorded Concern Status LastModified by Organization Details LastModified Time None Recorded Advance Directives Directive None Recorded Payers Insurance Date Sequence Insurance Name Policy Number Policy Bolanos Covered Member ID Bolanos Member ID Guarantor Name 11/07/[address] [facility] [id number] Abhi Giraldo [id number] Abhi Giraldo Notes Date Note Type Note Provider Name and Address Organization Details Recorded Time 11/07/2023 text/html Pt reports symptoms starting 4 to 5 days ago. Reports burning and no other symptoms. Denies frequency, urgency, odor, low back pain or blood in urine.Patient admits to sexual intercourse with a new partner a few weeks ago who told him recently that she may have something . It was unprotected sex. He denies any other recent new partners. He denies any history of any sexually transmitted infections. He denies any dysuria or pyuria or red spots or ulcers on his genitalia. Ghulam Schwarz DO [address] [place] [address], [address], [facility] 11/10/2023 16:36:29
[2024-09-01 20:48] VITALS: BP 121/73; PULSE 69; RESP 16; TEMP 36.9; O2SAT 100; BMI 22.4
--- NOTE | 2024-09-01 23:35 | ED_ITS ---
Documented by User: [email or web address] Marino 09/01/24 23:41 HPI - Ear Problem General: Chief complaint: Ear Stated complaint: R ear infection Time Seen by Provider: 09/01/24 22:32 Source: patient Mode of arrival: ambulatory Limitations: no limitations History of Present Illness: Patient is a 34-year-old male who presents to the emergency department complaining of right ear drainage for the past week. He states that this began after [place] He notes mild hearing loss but is not reporting any pain. Symptoms have been constant, he has not tried anything [id number]. Vitals normal, no fevers or nausea/vomiting. No dizziness. No bleeding from his ear. Describes the discharge as purulent. MD Complaint: ear discharge Location: right ear Duration: constant Severity: moderate Relieving factors: nothing Exacerbating factors: nothing Context: recent swimming Discharge from ear: yes - purulent Associated symptoms: Denies ear or mastoid pain, fever(s), headache(s) or neck pain Treatment prior to arrival: none Related Data Home Medications ?Medication ?Instructions ?Recorded ?Confirmed No Known Home Medications 10/06/2309/15 Allergies Allergy/AdvReac Type Severity Reaction Status Date / Time No Known Allergies Allergy Verified 10/06/23 11:53 Review of Systems General: Reports: 10 or more systems reviewed and unremarkable except in HPI and below Const: Denies: fever(s), chills or fatigue Eyes: Denies: change in vision ENMT: Reports: ear discharge and change in hearing; Denies: throat pain, ear or mastoid pain or nasal discharge Card: Denies: chest pain, palpitations, swelling of feet/ankles or lightheadedness Resp: Denies: dyspnea, productive cough or wheezing GI: Denies: abdominal pain, nausea, vomiting, diarrhea or constipation : Denies: flank pain, difficulty urinating, dysuria or urinary frequency Musc: Denies: neck pain, back pain or joint pain Skin/Breast: Denies: rash Neuro: Denies: headache(s), numbness in extremities or weakness in extremities PFS ED PFSH: Medical History Unknown family medical history Alcoholic intoxication Social History Alcohol intake: current Physical Exam Const: COMMON NORMALS: no acute distress and no limitations GENERAL APPEARANCE: cooperative, comfortable and well developed ORIENTATION/CONSCIOUSNESS: Yes awake HENMT: COMMON NORMALS: normocephalic, atraumatic, hearing grossly normal bilaterally, external ears normal and TM's normal bilaterally HEAD & SCALP: normocephalic and atraumatic EXTERNAL EAR: Yes external ears normal EXTERNAL AUDITORY CANAL: Abnormal EAC present EAC laterality: right Details: edema and otic discharge Details: purulent discharge TYMPANIC MEMBRANE: TM's normal bilaterally Eye: COMMON NORMALS: Equal, round and reactive pupils present, EOMs intact bilaterally and conjunctivae normal CONJUNCTIVA: Yes conjunctivae normal PUPIL: Yes Equal, round and reactive pupils present Neck/C-Spine: COMMON NORMALS: full ROM, supple and no JVD Resp: COMMON NORMALS: normal respiratory effort, No retractions, No use of accessory muscles and clear to auscultation bilaterally AUSCULTATION: clear to auscultation bilaterally Cardio: COMMON NORMALS: no JVD, regular rate, regular rhythm, No clicks present (Cardio), No murmurs present (Cardio) and No rub (Cardio) RATE: regular rate RHYTHM: regular rhythm Extremity: COMMON NORMALS: normal to inspection, full ROM and capillary refill normal Skin: COMMON NORMALS: no rashes or lesions noted GENERAL SKIN EXAM: no rashes or lesions noted Course Vital Signs: Vital signs: Vital Signs Temperature 98.4 F 09/01/24 20:48 Pulse Rate 69 09/01/24 20:48 Respiratory Rate 16 09/01/24 20:48 Blood Pressure 121/73 09/01/24 20:48 Pulse Oximetry 100 09/01/24 20:48 Oxygen Delivery Me thod Room Air 09/01/24 20:48 MDM - Ear Medical Decision Making Clinically this patient appears to have an otitis externa, and we will treat with Ciprodex. The tympanic membrane on the right was intact with no abnormalities here. No mastoid tenderness or redness. Vital stable. Discharged home at this time. No radiology studies performed this visit Discharge Plan Discharge Patient Disposition: Home Clinical Impression: Otitis externa Qualifiers: Otitis externa type: swimmer's ear Chronicity: acute Laterality: right Qualified Code(s): H60.331 - Swimmer's ear, right ear Condition: Stable Prescriptions: No Action No Known Home Medications Discharge Orders: Discharge ED (Routine); Ordered 09/01/24 Ordered By: Mateus Vazquez Patient Instructions: Pain Management, Patient Portal & Melanie Instructions Activity Restrictions/Additional Instructions: Otitis Externa Discharge Instructions Discharge Instructions for Otitis Externa Treated with Ciprodex Medication and Administration: - Ciprodex (ciprofloxacin 0.3% and dexamethasone 0.1%) otic suspension is prescribed for acute otitis externa. - Instill four drops into the affected ear twice daily (about every 12 hours) for seven days. - Before use: Warm the bottle by holding it in your hand for 1?2 minutes to avoid dizziness from cold drops. Shake the bottle well immediately before each use. - How to apply: - Lie down with the affected ear facing upward. - Instill the prescribed number of drops. - Remain in this position for at least 60 seconds to allow the medication to penetrate the ear canal. - Repeat for the other ear if instructed. - Do not touch the dropper tip to the ear, fingers, or any surface to avoid contamination. - Discard any unused medication after completing the course. Precautions and Side Effects: - For ear use only; do not use in the eyes or by mouth. - If a rash, itching, swelling, or other signs of allergic reaction occur, discontinue use and seek medical attention immediately. - Prolonged use may lead to overgrowth of non-susceptible bacteria or fungi. If symptoms do not improve after one week, or if they worsen, contact your healthcare provider. - If ear discharge (otorrhea) persists after completing therapy, or if there are two or more episodes within six months, further evaluation is recommended to rule out underlying conditions such as cholesteatoma, foreign body, or tumor. General Care and Prevention: - Keep the ear dry during treatment. Avoid swimming and submerging the ear in water for 7?10 days. - When showering, use a cotton ball coated with petroleum jelly or a waterproof earplug to protect the ear canal from water. - Do not insert objects (e.g., cotton swabs, hearing aids, or earphones) into the ear canal until pain and discharge have resolved. - Avoid manipulating or scratching the ear to minimize trauma. - After swimming or bathing, the external ear canal can be dried with a hairspring studder on the lowest heat setting, held at a safe distance. Follow-Up: - Complete the full course of therapy, even if symptoms improve before finishing the medication. - Contact your healthcare provider if symptoms persist, worsen, or if you experience new symptoms such as fever, severe pain, or spreading redness. When to Seek Immediate Medical Attention: - Signs of severe allergic reaction (rash, swelling of face/throat, difficulty breathing). - Worsening pain, fever, or spreading redness around the ear. These instructions are based on current FDA labeling and the [place] [employer] clinical practice guideline for acute otitis externa. 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 Fwd Documented by User: Ronaldo Canseco DO 09/03/24 05:48 HPI - Ear Problem General: Chief complaint: Ear Stated complaint: R ear infection Time Seen by Provider: 09/01/24 22:32 Related Data Home Medications ?Medication ?Instructions ?Recorded ?Confirmed No Known Home Medications 10/06/2309/15 Allergies Allergy/AdvReac Type Severity Reaction Status Date / Time No Known Allergies Allergy Verified 10/06/23 11:53 PFS ED PFSH: Medical History Unknown family medical history Alcoholic intoxication Social History Alcohol intake: current Course Vital Signs: Vital signs: Vital Signs Temperature 98.4 F 09/01/24 20:48 Pulse Rate 69 09/01/24 20:48 Respiratory Rate 16 09/01/24 20:48 Blood Pressure 121/73 09/01/24 20:48 Pulse Oximetry 100 09/01/24 20:48 Oxygen Delivery Me thod Room Air 09/01/24 20:48 MDM - Ear Medical Decision Making Clinically this patient appears to have an otitis externa, and we will treat with Ciprodex. The tympanic membrane on the right was intact with no abnormalities here. No mastoid tenderness or redness. Vital stable. Discharged home at this time. Chart reviewed Discharge Plan Discharge Patient Disposition: Home Clinical Impression: Otitis externa Qualifiers: Otitis externa type: swimmer's ear Chronicity: acute Laterality: right Qualified Code(s): H60.331 - Swimmer's ear, right ear Condition: Stable Prescriptions: No Action No Known Home Medications Discharge Orders: Discharge ED (Routine); Ordered 09/01/24 Ordered By: Mateus Vazquez Patient Instructions: Pain Management, Patient Portal & Melanie Instructions Activity Restrictions/Additional Instructions: Otitis Externa Discharge Instructions Discharge Instructions for Otitis Externa Treated with Ciprodex Medication and Administration: - Ciprodex (ciprofloxacin 0.3% and dexamethasone 0.1%) otic suspension is prescribed for acute otitis externa. - Instill four drops into the affected ear twice daily (about every 12 hours) for seven days. - Before use: Warm the bottle by holding it in your hand for 1?2 minutes to avoid dizziness from cold drops. Shake the bottle well immediately before each use. - How to apply: - Lie down with the affected ear facing upward. - Instill the prescribed number of drops. - Remain in this position for at least 60 seconds to allow the medication to penetrate the ear canal. - Repeat for the other ear if instructed. - Do not touch the dropper tip to the ear, fingers, or any surface to avoid contamination. - Discard any unused medication after completing the course. Precautions and Side Effects: - For ear use only; do not use in the eyes or by mouth. - If a rash, itching, swelling, or other signs of allergic reaction occur, discontinue use and seek medical attention immediately. - Prolonged use may lead to overgrowth of non-susceptible bacteria or fungi. If symptoms do not improve after one week, or if they worsen, contact your healthcare provider. - If ear discharge (otorrhea) persists after completing therapy, or if there are two or more episodes within six months, further evaluation is recommended to rule out underlying conditions such as cholesteatoma, foreign body, or tumor. General Care and Prevention: - Keep the ear dry during treatment. Avoid swimming and submerging the ear in water for 7?10 days. - When showering, use a cotton ball coated with petroleum jelly or a waterproof earplug to protect the ear canal from water. - Do not insert objects (e.g., cotton swabs, hearing aids, or earphones) into the ear canal until pain and discharge have resolved. - Avoid manipulating or scratching the ear to minimize trauma. - After swimming or bathing, the external ear canal can be dried with a hairspring studder on the lowest heat setting, held at a safe distance. Follow-Up: - Complete the full course of therapy, even if symptoms improve before finishing the medication. - Contact your healthcare provider if symptoms persist, worsen, or if you experience new symptoms such as fever, severe pain, or spreading redness. When to Seek Immediate Medical Attention: - Signs of severe allergic reaction (rash, swelling of face/throat, difficulty breathing). - Worsening pain, fever, or spreading redness around the ear. These instructions are based on current FDA labeling and the [place] [employer] clinical practice guideline for acute otitis externa. 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
[2024-09-01] MEDS: ciprofloxacin-dexameth Otic Susp 7.5 mL Btl 4 DROP EAR-RIGHT (23:48)
== END 2024-09-02 00:04 | disposition home or self-care (01) ==
PROVIDERS: Emergency Provider Physician Assistant
DX: H60.331 Swimmer's ear, right ear (principal)
CPT/HCPCS: 99283; J9999